=== PATIENT | male | born 1965 | race Caucasian/White ===

== ENCOUNTER 2018-11-11 13:58 | Emergency (ER) | payer OTHER, SELFPAY ==
[2018-11-11 13:59] VITALS: BP 129/88; PULSE 76; RESP 18; TEMP 36.4; O2SAT 93; BMI 24.5
--- NOTE | 2018-11-11 14:09 | RAD_ITS ---
STUDY: X-RAY CHEST REASON FOR EXAM: Male, 53 years old. Shortness of breath. Lightheadedness. TECHNIQUE: Single AP portable view of the chest. COMPARISON: None. FINDINGS: EKG electrodes are seen. Patchy bilateral infiltrates worse in the left lower lobe. There is no demonstrated pleural abnormality. Normal size heart. Normal mediastinum and cristofer. Normal visualized pulmonary arteries. Normal visualized aortic arch and descending thoracic aorta. Normal visualized thoracic spine. Normal visualized ribs, clavicles, and shoulders. There is no demonstrated abnormality of the visualized soft tissue structures of the upper abdomen. RAD/Chest 1 View (Portable) IMPRESSION: Patchy bilateral pulmonary infiltrates worse in the left lower lobe. Follow-up is recommended. Electronically Signed: Kal Irene, at 14:37 EDT , Service support ,
--- NOTE | 2018-11-11 14:09 | EKG12_ITS ---
Test Reason : Blood Pressure : / mmHG Vent. Rate : 064 BPM Atrial Rate : 064 BPM P-R Int : 176 ms QRS Dur : 088 ms QT Int : 398 ms P-R-T Axes : 026 -17 003 degrees QTc Int : 410 ms Normal sinus rhythm Inferior infarct , age undetermined Poor R- wave Progression Abnormal ECG Confirmed by OBEY LIRA, YUSUF ([id number]), editorial assistant SHAZIA HANKINS ([id number]) on 11/16/2018 2:19:51 PM Referred By: RADHA Confirmed By:YUSUF BARNHART MD
--- NOTE | 2018-11-11 14:15 | ED.VIS.GEN ---
History of Present Illness Chief Complaint: Shortness of Breath Informant: Patient Current Severity: Moderate Maximum Severity: Moderate Narrative: Patient presents with some shortness of breath and feeling lightheaded at work. He was diagnosed 5 days ago with pneumonia and placed on doxycycline. He denies any current fevers. He feels much improved since being in the emergency department. He has a cough which is worse in the morning and it is productive. He has some shortness of breath that has improved. He has no nausea or vomiting or abdominal pain. He has normal stools. Past Medical History - Allergies and Home Meds Allergies/Adverse Reactions: Allergies No Known Allergies Allergy (Verified 11/11/18 13:59) Primary Care Physician: Blu Petit MD [Primary Care Provider] - Past Medical History: - - Reviewed in [employer], hypertension Surgical History: no surgical history Lives: Spouse/ Significant Other Review of Systems All systems negative except as indicated General: Reports: - - Lightheaded. Denies: Fever Cardiovascular: Denies: Chest pain Respiratory: Reports: Dyspnea, Cough Gastrointestinal: Denies: Abdominal pain, Nausea Musculoskeletal: Reports: Myalgias Neurological: Reports: Headache, Weakness Hematologic: Reports: Easy bruising Allergy: Reports: Uticaria, Swelling of the mouth Physical Exam Vital Signs/Narrative: Vital Signs Temp Pulse Resp BP Pulse Ox 11/11/18 13:59 97.5 F L 76 18 129/88 H 93 General: Well developed Head: Normocephalic ENT: Dry mucous membranes Cardiovascular: Regular rate, Regular rhythm Respiratory: No distress, - - Coarse bilateral breath sounds Abdomen: Soft Back: Nontender, Normal Inspection Extremities: Nontender Skin: Normal color Neurological: Alert Diagnostic/Tx/Re-eval Chest X-Ray - ED: 1 View, Read by ED Physician, - - Bilateral pneumonia seen by me - Medical Decision Making Patient appears well, x-ray is significant for pneumonia. He is on doxycycline. I believe this is adequate his breathing has improved over the past 5 days is complaint today is lightheaded, he is likely dehydrated since he significantly improved after IV fluids. Otherwise he has a normal work-up including white count. I will discharge him, I will also refer him to pulmonology. ED Disposition - Plan for ED Patient: Disposition: Home or Assisted Living Diagnosis: Pneumonia Instructions: PNEUMONIA (Adult) Referrals: Blu Petit MD [Primary Care Provider] - 3-5 Days
[2018-11-11] MEDS: 0.9% Normal Saline 1,000 ML 1000 ML IV (14:25)
[2018-11-11 14:40] LABS: Absolute Lymphocyte Count 3.51 X10^3/uL (0.83-4.51); Absolute Neutrophil Count 5.6 X10^3/uL (2.0-7.7); Basophil# 0.04 X10^3/uL; Basophil% 0.4 % (0-1); Eosinophils% 2.9 % (0-5); Hematocrit 41.9 % (40-54); Hemoglobin 14.3 g/dL (13.0-16.5); Lymphocyte # 3.51 X10^3/ul (4.0); Lymphocyte % 34.5 % (19-41); Mean Corp Hgb Conc 34.1 g/dL (32-36); Mean Corpuscular Hgb 30.4 pg (27.0-32.0); Monocyte# 0.62 X10^3/uL; Monocyte% 6.1 % (0-10); NRBC Flagged by Analyzer 0 % (0-5); Neutrophil # 5.62 X10^3/uL (2.7-7.7); Neutrophil % 55.3 % (47-70); Platelet Count 420 K/mm3 (150-450); RBC Distribution Width CV 11.8 % (11.6-14.6); RBC Distribution Width SD 38.1 fl (35.1-43.9); Red Blood Count 4.71 M/mm3 (4.6-6.2); White Blood Count 10.2 K/mm3 (4.4-11.0)
[2018-11-11 14:49] LABS: ALB/GLOB Ratio 0.9 RATIO (0.9-2.4); AST(SGOT) 25 U/L (15-37); Alanine Aminotransfer ALT/SGPT 20 U/L (16-61); Albumin, Serum 3.6 g/dL (3.2-5.0); Alkaline Phosphatase 72 U/L (45-117); Anion Gap 4 (5-15); BUN 13 mg/dL (7-18); Calcium,Total 8.9 mg/dL (8.5-10.1); Chloride 106 mmol/L (98-107); EST Glomerular Filtration Rate 83 mL/min (>60); Est Glom Filt Rate - Afr Amer 101 mL/min (>60); Globulin 3.9 g/dL (2.2-4.2); Glucose 94 mg/dL (74-106); Lipase 94 U/L (73-393); Potassium 3.8 mmol/L (3.5-5.1); Protein, Total 7.5 g/dL (6.4-8.2); Sodium Level 136 mmol/L (136-145)
[2018-11-11 15:19] VITALS: BP 122/85; PULSE 76; RESP 20; TEMP 36.6; O2SAT 98
[2018-11-11 15:47] VITALS: BP 125/71; PULSE 81; RESP 20; O2SAT 98
--- NOTE | 2018-11-11 16:23 | ED.RN ---
INHALER TEACHING BY RT.
== END 2018-11-11 16:23 | disposition home or self-care (01) ==
PROVIDERS: Emergency Provider Emergency Medicine; Family Provider Family Medicine; PCP Family Medicine
DX: J18.9 Pneumonia, unspecified organism (principal); I10 Essential (primary) hypertension; Z79.899 Other long term (current) drug therapy
CPT/HCPCS: 71045; 80053; 83690; 84484; 85025; 93005; 94640; 96360; 99284; J7030

== ENCOUNTER → 2018-12-12 07:39 | Outpatient (CLI) | payer OTHER, SELFPAY ==
[2018-11-22 10:53] VITALS: BMI 24.9
--- NOTE | 2018-12-12 07:42 | CT_ITS ---
STUDY: CT CHEST WITHOUT CONTRAST REASON FOR EXAM: Male, 53 years old. Follow-up pneumonia. RADIATION DOSAGE (If Supplied By Facility): CTDIvol = ( 12.96 ) mGy, DLP = ( 449.99 ) mGycm TECHNIQUE: Transaxial imaging was performed without the administration of intravenous contrast material. Individualized dose optimization techniques were used for this CT. COMPARISON: None. FINDINGS: There are bilateral peripherally located groundglass opacities throughout the mid and lower lungs. There is scattered honeycombing. There is no focal consolidation visualized. Normal heart and pericardium. Normal mediastinum. Normal hilar regions. Normal unenhanced pulmonary arteries. Normal aorta arch and descending thoracic aorta. Normal osseous structures. There is no demonstrated abnormality of the visualized upper abdomen. CT/Chest without Contrast IMPRESSION: Findings suggestive of cryptogenic organizing pneumonia or possible eosinophilic pneumonia. Electronically Signed: Brinda Andino MD at 21:08 EDT Tel , Service support ,
--- NOTE | 2018-12-12 08:29 | ECHOD_ITS ---
Reason For Study: ZACK, LINDSAY Procedure This was a 2D Doppler, Color Flow transthoracic echocardiogram. The exam was of adequate technical quality. Exam performed in department. Left Ventricle Normal LV size. Left ventricular systolic function is normal. The estimated ejection fraction is 55 %. No evidence for diastolic dysfunction. No regional wall motion abnormalities noted. Right Ventricle Normal RV size. Normal systolic function. Atria Normal left atrium. Normal right atrium. No doppler evidence for ASD. Mitral Valve There is no mitral annular calcification. Equivocal mitral valve prolapse. Trivial mitral valve insufficiency. Tricuspid Valve Normal tricuspid valve. Trivial tricuspid valve insufficiency. Right ventricular systolic pressure estimated to be 24 mmHg. Aortic Valve Trisinus/trileaflet aortic valve. Mild focal aortic valve thickening. Pulmonic Valve The pulmonic valve is not well visualized. Mild (1+) pulmonic valve insufficiency. Great Vessels Normal sized aortic root. Pericardium/Pleural No pericardial effusion. MMode/2D Measurements & Calculations LVIDd: 3.9 cm IVSd: 1.1 cm Ao root diam: 3.1 cm LVIDs: 2.5 cm LVPWd: 1.0 cm RVDd: 3.2 cm FS: 35.1 % LAV(MOD-bp): 18.4 ml EDV(MOD-sp4): 69.5 ml EDV(MOD-sp2): 61.3 ml LAV(MOD-bp) Indexed: 9.8 ml/m2 ESV(MOD-sp4): 37.5 ml EF(MOD-sp2): 52.9 % LAV(MOD-sp2): 23.0 ml EF(MOD-sp4): 46.0 % LAV(MOD-sp4): 13.9 ml SV(MOD-sp4): 32.0 ml SV(MOD-sp2): 32.5 ml LA A4 area: 8.7 cm2 LA dimension(2D): 3.1 cm RA A4 area: 8.4 cm2 Doppler Measurements & Calculations MV E max niall: 52.5 cm/sec Lat Peak E' Niall: 9.6 cm/sec Med Peak E' Niall: 5.8 cm/sec MV A max niall: 58.2 cm/sec E/E' lat: 5.5 E/E' med: 9.0 MV E/A: 0.90 Ao V2 max: 116.4 cm/sec LV V1 max: 82.6 cm/sec PA V2 max: 82.7 cm/sec Ao max P.4 mmHg LV V1 max P.7 mmHg TR max niall: 231.2 cm/sec TR max P.4 mmHg Interpretation Summary Left ventricular systolic function is normal. The estimated ejection fraction is 55 %. Equivocal mitral valve prolapse. Trivial mitral valve insufficiency. Trivial tricuspid valve insufficiency. Mild focal aortic valve thickening. Mild (1+) pulmonic valve insufficiency. Right ventricular systolic pressure estimated to be 24 mmHg. No evidence for diastolic dysfunction. Ordering Physician: Omar Granado Referring Physician: Blu Petit Performed By: Elena Cedeño RDCS
[2018-12-12 08:33] VITALS: PULSE 100; PULSE 81; PULSE 82; PULSE 92; PULSE 97; O2SAT 90; O2SAT 91; O2SAT 92; O2SAT 93; O2SAT 94
--- NOTE | 2018-12-12 14:46 | PCM.PSN.6M ---
PSN 6 Minute Walk Test - 6 Minute Walk Test 6 Minute Walk Test: 6 Minute Walk Test PSN:6-Minute Walk Test Start: 12/12/18 08:32 Freq: Status: Active Protocol: RESP.6MINW Document 12/12/18 08:33 FR (Rec: 12/12/18 08:39 FR [id number]) 6 Minute Walk Test Date Performed 12/12/18 Time Performed 08:15 Height 5 ft 8 in Weight: 73.482 kg Weight in Pounds 162.[address]: Omar Granado Assistive device used: None Pre-test Oxygen Delivery Method Room Air Pulse Ox (%) 94 Pulse Rate (60-100 beats/min) 82 Dyspnea Monika Scale (0-10) 0 Exertion Monika Scale (6-20) 7 1st minute Oxygen Delivery Method Room Air Pulse Ox (%) 92 Pulse Rate (60-100 beats/min) 92 2nd minute Oxygen Delivery Method Room Air Pulse Ox (%) 90 Pulse Rate (60-100 beats/min) 100 3rd minute Oxygen Delivery Method Room Air Pulse Ox (%) 91 Pulse Rate (60-100 beats/min) 100 4th minute Oxygen Delivery Method Room Air Pulse Ox (%) 92 Pulse Rate (60-100 beats/min) 92 5th minute Oxygen Delivery Method Room Air Pulse Ox (%) 92 Pulse Rate (60-100 beats/min) 97 6th minute Oxygen Delivery Method Room Air Pulse Ox (%) 90 Pulse Rate (60-100 beats/min) 92 Dyspnea Monika Scale (0-10) 2 Exertion Monika Scale (6-20) 8 Reported Symptoms Increased Work of Breathing Post-test Oxygen Delivery Method Room Air Pulse Ox (%) 93 Pulse Rate (60-100 beats/min) 81 Full Laps Walked 18 Partial Lap, Number of Tiles Walked 12 Total Distance Walked (ft) 1074 - Interpretation Interpretation: The patient was able to ambulate 1074 feet over the course of 6 minutes on room air with no assistive devices or breaks. The patient did have significant desaturation from a baseline of 94% to as low as 90%. Patient did not have any significant tachycardia. These findings are consistent with a respiratory limitation exercise tolerance. - Recommendations Recommendations: No supplemental oxygen is indicated at this time, but patient will need to be followed closely given level of desaturation.
== END ==
PROVIDERS: Family Provider Family Medicine; PCP Family Medicine; Referring Provider Internal Medicine Critical Care Medicine; Visit Provider Internal Medicine Critical Care Medicine
DX: R06.02 Shortness of breath (principal)
CPT/HCPCS: 71250; 93306; 94618

== ENCOUNTER → 2018-12-19 07:52 | Outpatient (CLI) | payer OTHER, SELFPAY ==
[2018-11-22 10:53] VITALS: BMI 24.9
--- NOTE | 2018-12-19 13:32 | PFT ---
INTRODUCTION: The patient is a 53-year-old male that presents for pulmonary function studies secondary to a diagnosis of shortness of breath. Respiratory therapy reports good patient effort. Bronchodilators were used during testing. INTERPRETATION: Forced expiration spirometry demonstrates no evidence of a large airways obstructive ventilatory defect. There was a significant response to aerosolized bronchodilators, based upon change noted in FEV1. Spirograms are of good quality and plateau normally. Body plethysmography was performed and reveals a decrease TLC to 4.99 L, 79% of predicted, indicative of a mild restrictive ventilatory impairment. The remainder of the lung volumes are symmetrically reduced. Diffusing capacity by single breath CO is reduced at 45% of predicted. IMPRESSION: Mild restrictive ventilatory impairment with disproportionate reduction in diffusing capacity. Of note, the patient did have a significant bronchodilator response.
== END ==
PROVIDERS: Family Provider Family Medicine; PCP Family Medicine; Referring Provider Internal Medicine Critical Care Medicine; Visit Provider Internal Medicine Critical Care Medicine
DX: R06.02 Shortness of breath (principal)
CPT/HCPCS: 94060; 94726; 94729

== ENCOUNTER → 2019-01-19 09:35 | Outpatient (CLI) | payer OTHER, SELFPAY ==
[2019-01-19 06:08] VITALS: BMI 25.0
[2019-01-19 10:06] LABS: Absolute Lymphocyte Count 3.61 X10^3/uL (0.83-4.51); Absolute Neutrophil Count 5.9 X10^3/uL (2.0-7.7); Basophil# 0.04 X10^3/uL; Basophil% 0.4 % (0-1); Eosinophil# 0.39 X10^3/uL; Eosinophils% 3.7 % (0-5); Hematocrit 44.1 % (40-54); Lymphocyte # 3.61 X10^3/ul (4.0); Lymphocyte % 34.1 % (19-41); Mean Corpuscular Hgb 29.9 pg (27.0-32.0); Mean Platelet Vol. 9.2 fl (6.2-12.0); Monocyte# 0.55 X10^3/uL; Monocyte% 5.2 % (0-10); NRBC Flagged by Analyzer 0 % (0-5); Neutrophil # 5.92 X10^3/uL (2.7-7.7); Neutrophil % 55.9 % (47-70); Platelet Count 381 K/mm3 (150-450); RBC Distribution Width CV 12.6 % (11.6-14.6); RBC Distribution Width SD 40.6 fl (35.1-43.9); Red Blood Count 5.01 M/mm3 (4.6-6.2); White Blood Count 10.6 K/mm3 (4.4-11.0)
[2019-01-19 10:17] LABS: Erythrocyte Sedimentation Rate 28 mm/hr (0-20)
[2019-01-19 12:16] LABS: CRP, High Sensitivity Cardiac 7.37 mg/L
[2019-01-20 16:22] LABS: ANTINUCLEAR ANTIBODIES DIRECT Negative (Negative)
== END ==
PROVIDERS: Family Provider Family Medicine; PCP Family Medicine; Referring Provider Internal Medicine Critical Care Medicine; Visit Provider Internal Medicine Critical Care Medicine
DX: R06.02 Shortness of breath (principal)
CPT/HCPCS: 36415; 85025; 85652; 86038; 86141; 86225; 86235; 86256

== ENCOUNTER → 2019-02-10 07:49 | Outpatient (CLI) | payer OTHER, SELFPAY ==
[2019-01-19 06:08] VITALS: BMI 25.0
--- NOTE | 2019-02-10 07:50 | CT_ITS ---
STUDY: CT CHEST WITHOUT CONTRAST REASON FOR EXAM: Male, 53 years old. History of pneumonia. Follow-up examination. RADIATION DOSAGE (If Supplied By Facility): CTDIvol = ( 12.21 ) mGy, DLP = ( 367.15 ) mGycm TECHNIQUE: Transaxial imaging was performed without the administration of intravenous contrast material. Multiplanar coronal and sagittal images were reformatted. Individualized dose optimization techniques were used for this CT. COMPARISON: Comparison is made with prior study dated December 12, 2018. FINDINGS: Stable scarring at the lung apices. Since prior study, there has been mild degree of improvement in the periphery located airspace disease with the multiple cystic changes suggestive of bronchiectasis. This is more prominent in the lower lobes as compared to the upper lobes. There is no demonstrated pleural abnormality. Normal heart and pericardium. There are multiple small lymph nodes within the mediastinum, which are normal in size and morphology most compatible with reactive lymph hyperplasia. Normal hilar regions. Normal unenhanced pulmonary arteries. Normal aorta arch and descending thoracic aorta. Normal osseous structures. There is no demonstrated abnormality of the visualized upper abdomen. CT/Chest without Contrast IMPRESSION: Mild degree of improved aeration. Persistent peripheral based areas of groundglass appearance with multiple cystic changes in the honeycombing/bronchiectasis. Electronically Signed: Kal Irene, at 14:03 EST , Service support ,
== END ==
PROVIDERS: Family Provider Family Medicine; PCP Family Medicine; Referring Provider Internal Medicine Critical Care Medicine; Visit Provider Internal Medicine Critical Care Medicine
DX: R06.02 Shortness of breath (principal)
CPT/HCPCS: 71250

== ENCOUNTER → 2019-03-13 10:16 | Outpatient (CLI) | payer OTHER, SELFPAY ==
[2019-02-15 09:48] VITALS: BMI 25.0
[2019-03-13 13:09] LABS: Erythrocyte Sedimentation Rate 5 mm/hr (0-20)
[2019-03-13 13:13] LABS: Absolute Lymphocyte Count 3.14 X10^3/uL (0.83-4.51); Absolute Neutrophil Count 8.3 X10^3/uL (2.0-7.7); Basophil# 0.04 X10^3/uL; Basophil% 0.3 % (0-1); Eosinophil# 0.12 X10^3/uL; Hematocrit 46.7 % (40-54); Lymphocyte # 3.14 X10^3/ul (4.0); Lymphocyte % 25.1 % (19-41); Mean Corp Hgb Conc 34.3 g/dL (32-36); Mean Corpuscular Hgb 30.9 pg (27.0-32.0); Mean Corpuscular Volume 90.2 fL (80-94); Mean Platelet Vol. 9.7 fl (6.2-12.0); Monocyte# 0.75 X10^3/uL; NRBC Flagged by Analyzer 0 % (0-5); Neutrophil # 8.32 X10^3/uL (2.7-7.7); Neutrophil % 66.6 % (47-70); Platelet Count 388 K/mm3 (150-450); RBC Distribution Width CV 12.3 % (11.6-14.6); RBC Distribution Width SD 40.3 fl (35.1-43.9); Red Blood Count 5.18 M/mm3 (4.6-6.2); White Blood Count 12.5 K/mm3 (4.4-11.0)
[2019-03-13 13:39] LABS: Color, Urine Yellow (Yellow); Glucose, Dipstick Normal (Normal); Ketone-Dipstick Negative (Negative); Leukocyte Esterase-Dipstick Negative /ul (Negative); Nitrite-Dipstick Negative (Negative); Occult Blood-Urine Negative /ul (Negative); Protein-Dipstick Negative (Negative); Urine Bilirubin Dipstick Negative (Negative); Urine Clarity Clear (Clear); Urine Urobilinogen Normal (Normal)
[2019-03-13 14:03] LABS: ALB/GLOB Ratio 1.1 RATIO (0.9-2.4); AST(SGOT) 21 U/L (15-37); Alanine Aminotransfer ALT/SGPT 30 U/L (16-61); Albumin, Serum 4.1 g/dL (3.2-5.0); Alkaline Phosphatase 68 U/L (45-117); Anion Gap 3 (5-15); BUN 12 mg/dL (7-18); BUN/Creat Ratio 10.2 RATIO (10-20); CRP < 2.90 mg/L (0.0-3.0); Calcium,Total 9.3 mg/dL (8.5-10.1); Chloride 107 mmol/L (98-107); Creatinine, Serum 1.18 mg/dL (0.70-1.30); EST Glomerular Filtration Rate 69 mL/min (>60); Est Glom Filt Rate - Afr Amer 83 mL/min (>60); Globulin 3.9 g/dL (2.2-4.2); Glucose 98 mg/dL (74-106); Potassium 4.1 mmol/L (3.5-5.1); Rheumatoid Factor < 10.0 IU/mL (<15); Sodium Level 139 mmol/L (136-145)
[2019-03-13 14:04] LABS: Hepatitis B Surface Antibody Non-Reactive; Hepatitis B Surface Antigen Non-Reactive (Nonreactive); Hepatitis C Antibody Non-Reactive (Nonreactive)
[2019-03-13 14:37] LABS: Protein, Urine (Random) 8.4 mg/dL (<11.9); Protein:Creat Ratio 162 mg/g CRE (0-200)
[2019-03-15 12:51] LABS: CCP IgG Antibodies 8 units (0-19); Hepatitis B Core AB IgM Negative (Negative)
== END ==
PROVIDERS: Family Provider Family Medicine; PCP Family Medicine; Referring Provider Internal Medicine Rheumatology; Visit Provider Internal Medicine Rheumatology
DX: M06.4 Inflammatory polyarthropathy (principal); J84.10 Pulmonary fibrosis, unspecified; K21.9 Gastro-esophageal reflux disease without esophagitis; I10 Essential (primary) hypertension
CPT/HCPCS: 36415; 80053; 81002; 82570; 84156; 85025; 85652; 86140; 86200; 86431; 86705; 86706; 86803; 87340

== ENCOUNTER → 2019-06-05 07:41 | Outpatient (CLI) | payer OTHER, SELFPAY ==
[2019-04-11 05:56] VITALS: BMI 25.8
[2019-06-05 09:20] LABS: Absolute Lymphocyte Count 4.37 X10^3/uL (0.83-4.51); Absolute Neutrophil Count 5.6 X10^3/uL (2.0-7.7); Basophil# 0.06 X10^3/uL; Basophil% 0.5 % (0-1); Eosinophils% 1.8 % (0-5); Hemoglobin 15.7 g/dL (13.0-16.5); Lymphocyte # 4.37 X10^3/ul (4.0); Lymphocyte % 38.9 % (19-41); Mean Corp Hgb Conc 33.4 g/dL (32-36); Mean Corpuscular Hgb 29.8 pg (27.0-32.0); Mean Corpuscular Volume 89.2 fL (80-94); Mean Platelet Vol. 9.4 fl (6.2-12.0); Monocyte# 0.95 X10^3/uL; Monocyte% 8.5 % (0-10); NRBC Flagged by Analyzer 0 % (0-5); Neutrophil # 5.56 X10^3/uL (2.7-7.7); Neutrophil % 49.4 % (47-70); Platelet Count 370 K/mm3 (150-450); RBC Distribution Width CV 12.1 % (11.6-14.6); RBC Distribution Width SD 39.3 fl (35.1-43.9); Red Blood Count 5.27 M/mm3 (4.6-6.2); White Blood Count 11.2 K/mm3 (4.4-11.0)
[2019-06-05 09:42] LABS: ALB/GLOB Ratio 0.9 RATIO (0.9-2.4); AST(SGOT) 20 U/L (15-37); Alanine Aminotransfer ALT/SGPT 22 U/L (16-61); Albumin, Serum 3.8 g/dL (3.2-5.0); Alkaline Phosphatase 83 U/L (45-117); Anion Gap 4 (5-15); BUN 15 mg/dL (7-18); BUN/Creat Ratio 13.3 RATIO (10-20); Calcium,Total 9.7 mg/dL (8.5-10.1); Chloride 109 mmol/L (98-107); Creatinine, Serum 1.13 mg/dL (0.70-1.30); EST Glomerular Filtration Rate 72 mL/min (>60); Est Glom Filt Rate - Afr Amer 87 mL/min (>60); Globulin 4.1 g/dL (2.2-4.2); Glucose 119 mg/dL (74-106); Potassium 4.3 mmol/L (3.5-5.1); Protein, Total 7.9 g/dL (6.4-8.2); Sodium Level 138 mmol/L (136-145)
--- NOTE | 2019-06-06 13:43 | PFT ---
INTRODUCTION: The patient is a 54-year-old male that presents for pulmonary function studies secondary to a diagnosis of fibrosis. Respiratory therapy reports good patient effort. Bronchodilators were used during testing. INTERPRETATION: Forced expiration spirometry demonstrates no evidence of a large airways obstructive ventilatory defect. There was no significant response to aerosolized bronchodilators. Spirograms are of good quality and plateau normally. Body plethysmography was performed and reveals lung volumes to be within normal limits. Diffusing capacity by single breath CO is reduced at 46% of predicted. IMPRESSION: Isolated reduction in diffusing capacity, which could be related to an underlying pulmonary vascular disorder such as pulmonary hypertension.
== END ==
PROVIDERS: Internal Medicine Rheumatology; PCP Family Medicine; Referring Provider Internal Medicine Critical Care Medicine; Visit Provider Internal Medicine Critical Care Medicine
DX: J84.10 Pulmonary fibrosis, unspecified (principal); I10 Essential (primary) hypertension; M06.4 Inflammatory polyarthropathy; K21.9 Gastro-esophageal reflux disease without esophagitis; M35.9 Systemic involvement of connective tissue, unspecified
CPT/HCPCS: 36415; 80053; 85025; 94060; 94726; 94729

== ENCOUNTER → 2019-07-28 06:58 | Outpatient (CLI) | payer OTHER, SELFPAY ==
[2019-04-11 05:56] VITALS: BMI 25.8
[2019-07-28 07:52] VITALS: PULSE 76; PULSE 81; PULSE 83; PULSE 86; PULSE 90; PULSE 91; PULSE 94; O2SAT 93; O2SAT 94; O2SAT 95; O2SAT 96; O2SAT 97
--- NOTE | 2019-07-28 10:35 | WT_ITS ---
PSN 6 Minute Walk Test - 6 Minute Walk Test 6 Minute Walk Test: 6 Minute Walk Test PSN:6-Minute Walk Test Start: 07/28/19 07:52 Freq: Status: Active Protocol: RESP.6MINW Document 07/28/19 07:52 [facility] (Rec: 07/28/19 07:57 [facility] [id number]) 6 Minute Walk Test Date Performed 07/28/19 Time Performed 07:15 Height 5 ft 8 in Weight: 74.389 kg Weight in Pounds 164.[address]: Nadeen Phillips Assistive device used: None Pre-test Oxygen Delivery Method Room Air Pulse Ox (%) 95 Pulse Rate (60-100 beats/min) 83 Dyspnea Monika Scale (0-10) 2 1st minute Oxygen Delivery Method Room Air Pulse Ox (%) 96 Pulse Rate (60-100 beats/min) 81 Dyspnea Monika Scale (0-10) 2 Number of Rests Taken 0 2nd minute Oxygen Delivery Method Room Air Pulse Ox (%) 94 Pulse Rate (60-100 beats/min) 86 Dyspnea Monika Scale (0-10) 2 Number of Rests Taken 0 3rd minute Oxygen Delivery Method Room Air Pulse Ox (%) 94 Pulse Rate (60-100 beats/min) 90 Dyspnea Monika Scale (0-10) 2 Number of Rests Taken 0 4th minute Oxygen Delivery Method Room Air Pulse Ox (%) 95 Pulse Rate (60-100 beats/min) 94 Dyspnea Monika Scale (0-10) 2 Number of Rests Taken 0 5th minute Oxygen Delivery Method Room Air Pulse Ox (%) 95 Pulse Rate (60-100 beats/min) 90 Dyspnea Monika Scale (0-10) 2 Number of Rests Taken 0 6th minute Oxygen Delivery Method Room Air Pulse Ox (%) 93 Pulse Rate (60-100 beats/min) 91 Dyspnea Monika Scale (0-10) 2 Number of Rests Taken 0 Post-test Oxygen Delivery Method Room Air Pulse Ox (%) 97 Pulse Rate (60-100 beats/min) 76 Dyspnea Monika Scale (0-10) 2 Full Laps Walked 18 Partial Lap, Number of Tiles Walked 40 Total Distance Walked (ft) 1102 - Interpretation Interpretation: The patient was able to ambulate 1102 feet over the course of 6 minutes on room air with no assistive devices or breaks. The patient experienced no significant desaturation or tachycardia during testing. These findings are consistent with a normal walking oximetry. - Recommendations Recommendations: No supplemental oxygen is indicated at this time.
== END ==
PROVIDERS: PCP Family Medicine; Referring Provider Nurse Practitioner Acute Care; Visit Provider Nurse Practitioner Acute Care
DX: J84.10 Pulmonary fibrosis, unspecified (principal)
CPT/HCPCS: 94618

== ENCOUNTER → 2020-12-19 08:00 | Outpatient (CLI) | payer OTHER, SELFPAY ==
[2020-09-24 07:50] VITALS: BMI 24.7
--- NOTE | 2020-12-20 07:49 | PFT ---
INTRODUCTION: The patient is a 55-year-old male that presents for pulmonary function studies secondary to a diagnosis of shortness of breath. Respiratory therapy reported good patient effort. Bronchodilators were used during testing. INTERPRETATION: Forced expiration spirometry demonstrates no evidence of a large airways obstructive ventilatory defect. There was no significant response to aerosolized bronchodilators. Spirograms are of good quality and plateau normally. Body plethysmography was performed and reveals lung volumes to be within normal limits. Diffusing capacity by single breath CO is reduced to 53% of predicted. IMPRESSION: Moderate reduction in diffusing capacity, which appears somewhat improved from PFTs last completed in May 2019.
== END ==
PROVIDERS: PCP Family Medicine; Referring Provider Internal Medicine Critical Care Medicine; Visit Provider Internal Medicine Critical Care Medicine
DX: J84.89 Other specified interstitial pulmonary diseases (principal)
CPT/HCPCS: 94060; 94726; 94729

== ENCOUNTER → 2021-10-13 | Outpatient (CLI) | payer OTHER, SELFPAY ==
--- NOTE | 2021-10-13 15:13 | PFTCOMP ---
COMPLETE PULMONARY FUNCTION TEST INTERPRETATION Brief HPI: Patient is a 56-year-old male, currently under the care of myself, who presents to [facility] for complete pulmonary function tests secondary to diagnosis of NSIP. Respiratory therapist reports good effort and reproducible results. Interpretation: Forced expiration spirometry shows no large airways obstructive ventilatory defect with an FEV1 of 65% predicted. There is no significant bronchodilator response by strict ATS criteria. Spirograms are of good quality and plateau normally. The respiratory flow volume loop shows a normal pattern. Lung volumes by body plethysmography show a mildly decreased total lung capacity at 4.42 L, 71% predicted. All other lung volumes are reduced symmetrically. Diffusion capacity by carbon monoxide is decreased at 54% predicted. The airway resistance is normal. Compared to previous pulmonary function tests from 12/19/2020, there is been a significant reduction in total lung capacity by 25%. Impression: Mild restrictive ventilatory defect with a disproportionate reduction in diffusion capacity and some worsening compared to previous study.
== END | disposition home or self-care (01) ==
LOC: PSN 07:49
PROVIDERS: PCP Family Medicine; Visit Provider Nurse Practitioner Acute Care
DX: J84.10 Pulmonary fibrosis, unspecified (principal)
CPT/HCPCS: 94060; 94726; 94729

== ENCOUNTER → 2021-12-12 | Outpatient (CLI) | payer OTHER, SELFPAY | END | disposition home or self-care (01) | LOC: SL 12:05 | PROVIDERS: PCP Family Medicine; Referring Provider Internal Medicine Critical Care Medicine; Visit Provider Internal Medicine Critical Care Medicine | DX: J84.89 Other specified interstitial pulmonary diseases (principal) | CPT/HCPCS: 94762 ==

== ENCOUNTER 2022-02-04 07:45 | Outpatient (CLI) | payer OTHER, SELFPAY ==
--- NOTE | 2022-02-04 07:47 | CT_ITS ---
STUDY: CT CHEST WITHOUT CONTRAST REASON FOR EXAM: Male, 56 years old. Worsening PFT. History of interstitial pulmonary fibrosis. RADIATION DOSAGE (If Supplied By Facility): CTDIvol = ( 9.36 ) mGy, DLP = ( 318.25 ) mGycm TECHNIQUE: Transaxial imaging was performed without the administration of intravenous contrast material. Multiplanar coronal and sagittal images were reformatted. Individualized dose optimization techniques were used for this CT. COMPARISON: Comparison is made with prior examination dated 02/10/2019. FINDINGS: CHEST Stable small benign-appearing bilateral axillary lymph nodes. Emphysematous changes. Since prior study, there has been a progression of the bilateral patchy areas of groundglass appearance with that of bronchiectasis and scarring with subpleural blebs. This is worse in the lower lobes. There is no demonstrated pleural abnormality. Normal heart and pericardium. No coronary artery calcification is seen. There are multiple small lymph nodes within the mediastinum, which are normal in size and morphology most compatible with reactive lymph hyperplasia. Normal hilar regions. Normal unenhanced pulmonary arteries. Normal aorta arch and descending thoracic aorta. Normal osseous structures. There is no demonstrated abnormality of the visualized upper abdomen. CT/Chest without Contrast IMPRESSION: Diffuse emphysematous changes with progression of the diffuse bilateral pulmonary fibrosis with bronchiectasis and honeycombing. Electronically Signed: Kal Irene MD at 13:58 EST ,
== END 2022-02-04 23:59 | disposition home or self-care (01) ==
PROVIDERS: PCP Family Medicine; Referring Provider Internal Medicine Critical Care Medicine; Visit Provider Internal Medicine Critical Care Medicine
DX: J84.89 Other specified interstitial pulmonary diseases (principal); J47.9 Bronchiectasis, uncomplicated; J98.4 Other disorders of lung; R91.8 Other nonspecific abnormal finding of lung field
CPT/HCPCS: 71250; 94060; 94726; 94729

== ENCOUNTER 2022-06-06 08:04 | Emergency (ER) | payer OTHER, SELFPAY ==
[2022-06-06 08:04] VITALS: BP 144/91; PULSE 73; RESP 16; TEMP 36.4; O2SAT 99; BMI 24.5
--- NOTE | 2022-06-06 08:20 | ED.VIS.CHEST ---
HPI History of Present Illness Chief Complaint: Chest Pain Informant: patient and spouse/S.O. Narrative Narrative: Patient presents by private vehicle evaluation left-sided chest pain intermittent over the past 2 days. States intermittent sharp sensations. Chronic cough due to history of pulmonary fibrosis diagnosed 2018. Remote tobacco stopped in 2016. History of hyper tension and hyperlipidemia. Stress test years ago. No history of heart caths. 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 No recent leg swelling or cramping. No history of PE or DVT. Took naproxen last night with improvement of symptoms. States had nontraumatic lower back pain starting Wednesday which has resolved. No abdominal pain. Prior Similar Symptoms: No CVD Risk Factors: Positive for Hypertension and Hypercholesterolemia; Negative for Diabetes or Smoking PE Risk Factors: Positive for Recent Travel/Surgery; Negative for Recent Immobilization or Prior DVT or PE [facility] Medical History (Updated 06/06/22 @ 11:[address] Dakota Bolton, DO) Acid reflux Herpes simplex History of bronchitis HTN (hypertension) Hyperlipidemia Inguinal hernia Pulmonary fibrosis Home Medications lisinopril 10 mg tablet 10 mg PO DAILY 11/11/18 [History Last Taken Unknown] hydroxychloroquine 200 mg tablet (Plaquenil) 200 mg PO BID 12/15/19 [History Last Taken Unknown] ascorbic acid (vitamin C) 500 mg capsule 1,000 mg PO 05/20/20 [History Last Taken Unknown] cholecalciferol (vitamin D3) 50 mcg (2,000 unit) capsule 50 mcg PO DAILY 05/20/20 [History Last Taken Unknown] folic acid 1 mg tablet 1 mg PO DAILY 05/20/20 [History Last Taken Unknown] leucovorin calcium 15 mg tablet 15 mg PO .once a week 05/20/20 [History Last Taken Unknown] loratadine 10 mg tablet (Allergy Relief (loratadine)) 10 mg PO DAILY 05/20/20 [History Last Taken Unknown] zinc 50 mg tablet 50 mg PO DAILY 05/20/20 [History Last Taken Unknown] albuterol sulfate 90 mcg/actuation aerosol inhaler 2 inh inhalation Q6H PRN shortness of breath or wheezing #8.5 grams 07/23/20 [Rx Last Taken Unknown] budesonide 160 mcg-glycopyr 9 mcg-formot 4.8 mcg/actuation HFA inhaler (Breztri Aerosphere) 2 inh inhalation BID #10.7 grams 11/17/21 [Rx Last Taken Unknown] omeprazole 20 mg capsule,delayed release 20 mg PO DAILY #90 caps 11/17/21 [Rx Last Taken Unknown] methotrexate sodium 2.5 mg tablet 17.5 mg PO QWEEK 02/16/22 [History Last Taken Unknown] Allergy/AdvReac Type Severity Reaction Status Date / Time No Known Allergies Allergy Verified 06/06/22 08:06 Family History Grandfather Black lung disease Father Heart disease CVA (cerebral vascular accident) COPD (chronic obstructive pulmonary disease) Mother breathing related issues Other Diabetes Surgical History No history of previous surgery Social History Smoking Status: Former smoker Tobacco: How many years used: 36 how long ago did patient quit smokin, 0.5ppd second hand exposure: Yes ROS ROS ED Constitutional Constitutional ED: Denies chills, fever(s) or sweats Eyes Eyes: Denies change in vision ENT ENT ED: Denies dysphagia or sore throat Cardiovascular Cardiovascular: Reports chest pain; Denies leg edema, palpitations or racing heartbeat Respiratory/Chest Respiratory/Chest: Reports cough, dyspnea and dyspnea on exertion Gastrointestinal Gastrointestinal: Denies abdominal pain, diarrhea, nausea or vomiting Genitourinary Genitourinary ED: Denies dysuria, hematuria or urinary frequency Musculoskeletal Musculoskeletal: Denies back pain, extremity pain or neck pain Integumentary Denies rash or wounds Neurologic Neurologic: Denies headache(s), paresthesias or weakness EXAM Physical Exam Const Vital Signs: 06/06/22 08:04 06/06/22 08:18 06/06/22 08:37 Temperature 97.6 F L Temperature Source Temporal Pulse Rate 73 Respiratory Rate 16 Respiratory Effort Normal Non-Labored Respiratory Pattern Normal Blood Pressure 144/91 H Blood Pressure Mean 108 Pulse Ox 99 97 Oxygen Delivery Method Room Air Room Air 06/06/22 10:12 Temperature Temperature Source Pulse Rate 62 Respiratory Rate 20 H Respiratory Effort Respiratory Pattern Blood Pressure 117/88 H Blood Pressure Mean 97 Pulse Ox 100 Oxygen Delivery Method Room Air Positive well nourished and well developed General Appearance ED: well developed and NAD HEENT Reports moist mucous membranes normocephalic and atraumatic Eyes PERRL, EOMs intact bilaterally and conjunctivae normal General Eye ED: Yes normal appearance of both eyes Neck no lymphadenopathy and supple General: Negative for tenderness Chest Wall inspection of chest normal and palpation of chest normal Chest Narrative: No rash Chest: Negative for tenderness Resp normal respiratory effort and normal air movement Effort and Inspection: symmetric chest movement; Negative for respiratory distress Cardio regular rate, regular rhythm and no murmurs Peripheral Pulses: pulses 2+ throughout GI normal to inspection, nondistended, normoactive bowel sounds and non-tender Palpation: Negative for guarding or rebound tenderness present Back/Spine no CVA tenderness and no thoracic nor lumbar tenderness Back/Spine Narrative: No ecchymosis, no rashes, nontender lumbar spine region. Extremity normal to inspection General Extremety ED: Negative for edema or tenderness General Extremity: Negative for edema Neuro oriented x3 and no sensory deficits noted Sensorium / Orientation: awake and alert Skin no rashes or lesions noted and no wounds Heart Score History: Slightly/Non-Suspicious ECG: Nonspecific Repolarization Age: >45 - <65 years Risk Factors: 1 or 2 Risk Factors Troponin: </= Normal Limit Score: 3 MDM MDM MDM Narrative Medical decision making narrative: Interventions / MDM: Differential diagnosis: ACS, pulmonary embolism, atypical chest pain Diagnosis considered but do not suspect: N/A My EKG interpretation: Sinus rate of 80, no ST changes, T wave inversions in leads III flattening in aVF. Similar findings from October 2020. Imaging independently reviewed and interpreted by myself: CT angiogram chest: Interpreted by radiology shows no acute process. External documents reviewed: N/A Test considered but not ordered:N/A ED course: Patient intermittent chest pains left side for the past 2 days. None currently. EKG chronic changes work-up negative troponin x2 low risk Wells criteria for PE, D-dimer obtained elevated subsequent CT of the chest negative. Symptom-free on reevaluation. Patient symptoms improved with NSAIDs discussed continue this as needed. He will follow-up with PCP for further testing as an outpatient. Return precautions. All questions were answered. Re-evaluation: stable Disposition discussed with patient/family/significant other: Patient and significant other Case discussed with consulting clinician: N/A Lab Data Labs: Laboratory Results - last 24 hr 06/06/22 06/06/22 06/06/22 08:29 08:29 08:29 WBC 11.0 RBC 4.75 Hgb 14.3 Hct 43.7 MCV 92.0 MCH 30.1 MCHC 32.7 RDW Std Deviation 42.3 RDW Coeff of Claudette 12.7 Plt Count 414 MPV 9.0 Immature Gran % (Auto) 0.900 Neut % (Auto) 60.9 Lymph % (Auto) 24.0 [place] % (Auto) 9.4 Eos % (Auto) 4.5 Baso % (Auto) 0.3 Absolute Neuts (auto) 6.7 Absolute Lymphs (auto) 2.63 Nucleated RBC % 0 PT 13.1 INR 1.0 APTT 30.5 D-Dimer Quant (PE/DVT) 1.34 H* Sodium 136 Potassium 4.3 Chloride 108 H Carbon Dioxide 27.0 Anion Gap 1 L BUN 14 Creatinine 0.91 Estim Creat Clear Calc 87.69 Est GFR (MDRD) Af Amer 111 Est GFR (MDRD) Non-Af 91 BUN/Creatinine Ratio 15.4 Glucose 104 Calcium 9.4 Troponin I High Sens 4 06/06/22 10:50 WBC RBC Hgb Hct MCV MCH MCHC RDW Std Deviation RDW Coeff of Claudette Plt Count MPV Immature Gran % (Auto) Neut % (Auto) Lymph % (Auto) King[place] % (Auto) Eos % (Auto) Baso % (Auto) Absolute Neuts (auto) Absolute Lymphs (auto) Nucleated RBC % PT INR APTT D-Dimer Quant (PE/DVT) Sodium Potassium Chloride Carbon Dioxide Anion Gap BUN Creatinine Estim Creat Clear Calc Est GFR (MDRD) Af Amer Est GFR (MDRD) Non-Af BUN/Creatinine Ratio Glucose Calcium Troponin I High Sens < 3 L Radiography Diagnostic Testing: Clinical Impression(s) from Imaging Studies Chest CTA 06/06/22 09:04 IMPRESSION: No demonstrated pulmonary embolism or arterial dissection. COPD and pulmonary fibrosis as well as bronchiectasis detailed above. Mediastinal adenopathy and hilar adenopathy is again noted. This could be reactive. Lymphoma or metastatic disease cannot be excluded. Electronically Signed: Neymar Barclay MD, ADAM at 9:32 EDT , Discharge Plan Triage Chief Complaint: Chest Pain ED Provider: Dakota Bolton Dx/Rx/DC Orders Clinical Impression: Chest pain, Pulmonary fibrosis Instructions: ED Chest Pain, Uncertain Cause Prescriptions: No Action folic acid 1 mg tablet 1 mg PO DAILY ascorbic acid (vitamin C) 500 mg capsule 1,000 mg PO zinc 50 mg tablet 50 mg PO DAILY cholecalciferol (vitamin D3) 50 mcg (2,000 unit) capsule 50 mcg PO DAILY leucovorin calcium 15 mg tablet 15 mg PO .once a week loratadine [Allergy Relief (loratadine)] 10 mg tablet 10 mg PO DAILY methotrexate sodium 2.5 mg tablet 17.5 mg PO QWEEK hydroxychloroquine [Plaquenil] 200 mg tablet 200 mg PO BID Breztri Aerosphere 160-9-4.8 mcg/actuation HFA aerosol inhaler 2 inh inhalation BID Qty: 10.7 6RF omeprazole 20 mg capsule,delayed release(DR/EC) 20 mg PO DAILY Qty: 90 3RF lisinopril 10 MG tablet 10 mg PO DAILY Label Comments: TAKE 1 TABLET BY MOUTH ONCE DAILY albuterol sulfate 90 mcg/actuation HFA aerosol inhaler 2 inh INHALATION Q6H PRN (Reason: shortness of breath or wheezing) Qty: 8.5 6RF Primary Care Provider: Moshe Vincent Referrals: Moshe Vincent MD [Primary Care Provider] - 3-5 Days Activity Restrictions/Additional Instructions: Cardiac work-up negative, CT chest negative for PE. Stable nodules noted in the scan. Follow-up with your doctor for stress test as an outpatient. Return if worsening symptoms. Disposition Disposition: Home, Self Care Discharge Date/Time: 06/06/22 12:02
[2022-06-06 08:37] VITALS: O2SAT 97
[2022-06-06 08:37] LABS: Absolute Lymphocyte Count 2.63 X10^3/uL (0.83-4.51); Absolute Neutrophil Count 6.7 X10^3/uL (2.0-7.7); Basophil# 0.03 X10^3/uL; Basophil% 0.3 % (0-1); Eosinophil# 0.49 X10^3/uL; Eosinophils% 4.5 % (0-5); Hematocrit 43.7 % (40-54); Hemoglobin 14.3 g/dL (13.0-16.5); Lymphocyte # 2.63 X10^3/ul (0.83-4.51); Mean Corp Hgb Conc 32.7 g/dL (32-36); Mean Corpuscular Hgb 30.1 pg (27.0-32.0); Monocyte# 1.03 X10^3/uL; Monocyte% 9.4 % (0-10); NRBC Flagged by Analyzer 0 % (0-5); Neutrophil # 6.68 X10^3/uL (2.7-7.7); Neutrophil % 60.9 % (47-70); Platelet Count 414 K/mm3 (150-450); RBC Distribution Width CV 12.7 % (11.6-14.6); RBC Distribution Width SD 42.3 fl (35.1-43.9); Red Blood Count 4.75 M/mm3 (4.6-6.2)
[2022-06-06 08:55] LABS: Anion Gap 1 (5-15); BUN 14 mg/dL (7-18); BUN/Creat Ratio 15.4 RATIO (10-20); Calcium,Total 9.4 mg/dL (8.5-10.1); Chloride 108 mmol/L (98-107); Creatinine, Serum 0.91 mg/dL (0.70-1.30); EST Glomerular Filtration Rate 91 mL/min (>60); Est Glom Filt Rate - Afr Amer 111 mL/min (>60); Estimated Creatinine Clearance 87.69 ml/min; Glucose 104 mg/dL (74-106); Potassium 4.3 mmol/L (3.5-5.1); Sodium Level 136 mmol/L (136-145); Troponin-I HS (w/2H Reflex) 4 pg/mL (3.0-78.0)
[2022-06-06 08:57] LABS: Prothrombin Time (Protime)PT. 13.1 SECONDS (11.7-14.9)
[2022-06-06 08:58] LABS: Partial Thromboplast Time 30.5 Seconds (24.1-36.2)
[2022-06-06 09:01] LABS: D-Dimer Quantitative (DVT/PE) 1.34 FEU/ug/m (0.27-0.49)
--- NOTE | 2022-06-06 09:04 | CT_ITS ---
STUDY: CTA CHEST REASON FOR EXAM: Male, 57 years old. chest pain RADIATION DOSAGE (If Supplied By Facility): CTDIvol = ( 11.92 ) mGy, DLP = ( 349.96 ) mGycm TECHNIQUE: The examination was performed with the intravenous administration of IV 100mL Isovue-370. Post-processing of the angiographic images was performed, with multiplanar reformation and 3D reconstruction. Individualized dose optimization techniques were used for this CT. COMPARISON: 02/04/2022. FINDINGS: Normal enhancement of the main pulmonary artery and right and left pulmonary arteries. Normal enhancement of the bilateral peripheral pulmonary arteries. There is no demonstrated pulmonary embolism. Normal thoracic aorta and visualized great vessels. There is no demonstrated aortic dissection. Normal heart and pericardium. Normal AP window lymph node 1.7 x 1.83 cm. The prevascular lymph node 0.5 x 1.0 cm. 2 subcarinal lymph nodes 1.0 x 1.3 cm and 0.8 x 0.9 cm. Left hilar lymph nodes measure 1.0 x 1.2 cm and 0.8 x 0.9 cm. Right hilar lymph node 1.0 x 0.8 cm. Right lower hilar lymph node 1.5 x 1.3 cm. Normal visualized trachea. There is diffuse COPD. Moderate fibrosis seen peripherally in the upper lobes. There is moderate bronchiectasis within the lingula. There is moderate fibrosis peripherally in the right middle lobe and lingula. There is severe fibrosis within both lower lobes with honeycombing, bronchiectasis and emphysematous disease. Normal pulmonary parenchyma. Normal pleura. Normal chest wall structures. Normal osseous structures. Normal visualized upper abdomen. CT/CTA Chest W/WO Contrast IMPRESSION: No demonstrated pulmonary embolism or arterial dissection. COPD and pulmonary fibrosis as well as bronchiectasis detailed above. Mediastinal adenopathy and hilar adenopathy is again noted. This could be reactive. Lymphoma or metastatic disease cannot be excluded. Electronically Signed: Neymar Barclay MD, ADAM at 9:32 EDT ,
[2022-06-06 10:12] VITALS: BP 117/88; PULSE 62; RESP 20; O2SAT 100
[2022-06-06 10:33] LABS: Reflex Troponin-HS? (from REC) Y
[2022-06-06 11:12] LABS: Troponin-I HS < 3 pg/mL (3.0-78.0)
== END 2022-06-06 12:02 | disposition home or self-care (01) ==
PROVIDERS: Emergency Provider Emergency Medicine; PCP Family Medicine; Visit Provider Emergency Medicine
DX: R07.9 Chest pain, unspecified (principal); J84.10 Pulmonary fibrosis, unspecified; E78.00 Pure hypercholesterolemia, unspecified; Z87.891 Personal history of nicotine dependence; E78.5 Hyperlipidemia, unspecified; I10 Essential (primary) hypertension
CPT/HCPCS: 71275; 80048; 84484; 85025; 85379; 85610; 85730; 93005; 99284; Q9967; A4216

== ENCOUNTER → 2022-09-14 | Outpatient (CLI) | payer OTHER, SELFPAY ==
--- NOTE | 2022-09-15 05:35 | PFTCOMP_ITS ---
COMPLETE PULMONARY FUNCTION TEST INTERPRETATION Brief HPI: Patient is a 57-year-old male, currently under the care of myself, who presents to [facility] for complete pulmonary function tests secondary to diagnosis of ILD. Respiratory therapist reports good effort and reproducible results. Interpretation: Forced expiration spirometry shows no large airways obstructive ventilatory defect with an FEV1 of 68% predicted. There is no significant bronchodilator response by strict ATS criteria. Spirograms are of good quality and plateau slowly, indicating slowly emptying areas of the lungs. The respiratory flow volume loop shows a normal pattern. Lung volumes by body plethysmography show a decreased total lung capacity at 4.41 L, 71% predicted. All other lung volumes are reduced symmetrically. Diffusion capacity by carbon monoxide is decreased at 63% predicted. The airway resistance is normal. Compared to previous pulmonary function tests from 02/04/2022, there is been a significant improvement in DLCO by 17%. Impression: Mild restrictive ventilatory defect with a symmetric reduction diffusion capacity, but some improvement compared to previous testing.
== END | disposition home or self-care (01) ==
PROVIDERS: PCP Family Medicine; Referring Provider Internal Medicine Critical Care Medicine; Visit Provider Internal Medicine Critical Care Medicine
DX: J84.89 Other specified interstitial pulmonary diseases (principal)
CPT/HCPCS: 94060; 94726; 94729

== ENCOUNTER → 2022-10-01 | Outpatient (CLI) | payer OTHER, SELFPAY ==
[2022-10-01 08:17] VITALS: PULSE 70; PULSE 80; PULSE 86; PULSE 88; PULSE 89; PULSE 91; PULSE 96; O2SAT 93; O2SAT 94; O2SAT 95; O2SAT 97
--- NOTE | 2022-10-02 05:42 | PCM.PSN.6M ---
PSN 6 Minute Walk Test 6 Minute Walk Test 6 Minute Walk Test: 6 Minute Walk Test PSN:6-Minute Walk Test Start: 10/01/22 08:17 Freq: Status: Active Protocol: RESP.6MINW Document 10/01/22 08:17 (Rec: 10/01/22 08:22 JR [id number]) 6 Minute Walk Test Date Performed 10/01/22 Time Performed 08:15 Height 5 ft 8 in Weight: 73.482 kg Weight in Pounds 162.[address]: Omar Granado Assistive device used: None Pre-test Oxygen Delivery Method Room Air Pulse Ox 94 Pulse Rate (60-100) 70 Dyspnea Monika Scale (0-10) 0 Exertion Monika Scale (6-20) 6 1st minute Oxygen Delivery Method Room Air Pulse Ox 95 Pulse Rate (60-100) 86 2nd minute Oxygen Delivery Method Room Air Pulse Ox 93 Pulse Rate (60-100) 91 3rd minute Oxygen Delivery Method Room Air Pulse Ox 94 Pulse Rate (60-100) 89 4th minute Oxygen Delivery Method Room Air Pulse Ox 95 Pulse Rate (60-100) 80 5th minute Oxygen Delivery Method Room Air Pulse Ox 94 Pulse Rate (60-100) 96 6th minute Oxygen Delivery Method Room Air Pulse Ox 94 Pulse Rate (60-100) 88 Dyspnea Monika Scale (0-10) 3 Exertion Monika Scale (6-20) 11 Post-test Oxygen Delivery Method Room Air Pulse Ox 97 Pulse Rate (60-100) 80 Full Laps Walked 16 Partial Lap, Number of Tiles Walked 0 Total Distance Walked (ft) 944 Interpretation Interpretation: Patient was able to ambulate 944 feet over the course of 6 minutes on room air with no assistive devices or breaks. The patient experienced no significant desaturation or tachycardia during testing. These findings are consistent with a musculoskeletal limitation exercise tolerance. Recommendations Recommendations: No supplemental oxygen is indicated at this time.
== END | disposition home or self-care (01) ==
LOC: PSN 07:57
PROVIDERS: PCP Family Medicine; Referring Provider Internal Medicine Critical Care Medicine; Visit Provider Internal Medicine Critical Care Medicine
DX: J84.89 Other specified interstitial pulmonary diseases (principal)
CPT/HCPCS: 94618

== ENCOUNTER → 2023-10-19 | Outpatient (CLI) | payer OTHER, SELFPAY | END | disposition home or self-care (01) | PROVIDERS: PCP Family Medicine; Referring Provider Internal Medicine Critical Care Medicine; Visit Provider Internal Medicine Critical Care Medicine | DX: J84.89 Other specified interstitial pulmonary diseases (principal) | CPT/HCPCS: 94060; 94726; 94729 ==

== ENCOUNTER → 2024-08-14 | Outpatient (CLI) | payer OTHER, SELFPAY ==
[2024-08-14 10:33] LABS: Absolute Lymphocyte Count 4.16 X10^3/uL (0.83-4.51); Absolute Neutrophil Count 7.3 X10^3/uL (2.0-7.7); Basophil% 0.4 % (0-1); Eosinophil# 0.32 X10^3/uL; Eosinophils% 2.5 % (0-5); Hematocrit 46.5 % (40-54); Hemoglobin 15.7 g/dL (13.0-16.5); Lymphocyte # 4.16 X10^3/ul (0.83-4.51); Lymphocyte % 31.9 % (19-41); Mean Corp Hgb Conc 33.8 g/dL (32-36); Mean Corpuscular Hgb 29.9 pg (27.0-32.0); Mean Corpuscular Volume 88.6 fL (80-94); Mean Platelet Vol. 9.6 fl (6.2-12.0); Monocyte# 1.12 X10^3/uL; Monocyte% 8.6 % (0-10); Neutrophil % 55.8 % (47-70); Platelet Count 390 K/mm3 (150-450); RBC Distribution Width CV 14.2 % (11.6-14.6); RBC Distribution Width SD 45.4 fl (35.1-43.9); Red Blood Count 5.25 M/mm3 (4.6-6.2); White Blood Count 13.1 K/mm3 (4.4-11.0)
[2024-08-14 10:34] LABS: Basophil# 0.05 X10^3/uL; NRBC Flagged by Analyzer 0 % (0-5)
[2024-08-14 12:02] LABS: ALB/GLOB Ratio 1.4 RATIO (0.9-2.4); AST(SGOT) 25 U/L (<=37); Alanine Aminotransfer ALT/SGPT 25 U/L (<=46); Albumin, Serum 4.3 g/dL (3.5-5.0); Alkaline Phosphatase 94 U/L (40-129); Anion Gap 12 (5-15); BUN 14 mg/dL (4-19); BUN/Creat Ratio 14.9 RATIO (10-20); Calcium,Total 9.6 mg/dL (7.6-11.0); Carbon Dioxide 23.1 mmol/L (21.0-32.0); Chloride 102 mmol/L (98-108); Creatinine, Serum 0.95 mg/dL (0.70-1.20); EST Glomerular Filtration Rate 93 (>60); Glucose 96 mg/dL (70-99); Potassium 4.1 mmol/L (3.3-5.1); Protein, Total 7.3 g/dL (5.9-8.4); Sodium Level 137 mmol/L (133-145); Total Bilirubin 0.23 mg/dL (0.00-1.30)
== END | disposition home or self-care (01) ==
PROVIDERS: Internal Medicine Medical Oncology; PCP Family Medicine; Referring Provider Nurse Practitioner Acute Care; Visit Provider Nurse Practitioner Acute Care
DX: J84.10 Pulmonary fibrosis, unspecified (principal); M06.4 Inflammatory polyarthropathy; Z79.899 Other long term (current) drug therapy; M18.0 Bilateral primary osteoarthritis of first carpometacarpal joints
CPT/HCPCS: 36415; 80053; 85025; 94060; 94726; 94729

== ENCOUNTER → 2024-08-15 | Outpatient (CLI) | payer OTHER, SELFPAY ==
[2024-08-15 08:08] VITALS: PULSE 82; PULSE 92; PULSE 93; PULSE 95; PULSE 97; PULSE 99; O2SAT 89; O2SAT 90; O2SAT 92; O2SAT 93; O2SAT 94; O2SAT 95
--- NOTE | 2024-08-18 10:47 | PCM.PSN.6M ---
PSN 6 Minute Walk Test 6 Minute Walk Test 6 Minute Walk Test: 6 Minute Walk Test PSN:6-Minute Walk Test Start: 08/15/24 08:25 Freq: Status: Active Protocol: RESP.6MINW Document 08/15/24 08:08 [facility] (Rec: 08/15/24 08:36 [facility] [id number]) 6 Minute Walk Test Date Performed 08/15/24 Time Performed 08:00 Height 26.77 in Weight: 157 lb Weight in Pounds 157.[address]: Nadeen Phillips TELEVISION ANCHOR FIO2 (% Oxygen) 21 Assistive device None used: Pre-test Oxygen Delivery Room Air Method Pulse Ox (%) 95 Pulse Rate (60-100 82 beats/min) Dyspnea Monika Scale ( 2 0-10) Exertion Monika Scale 7 (6-20) 1st minute Oxygen Delivery Room Air Method Pulse Ox (%) 93 Pulse Rate (60-100 93 beats/min) 2nd minute Oxygen Delivery Room Air Method Pulse Ox (%) 92 Pulse Rate (60-100 99 beats/min) 3rd minute Oxygen Delivery Room Air Method Pulse Ox (%) 90 Pulse Rate (60-100 93 beats/min) 4th minute Oxygen Delivery Room Air Method Pulse Ox (%) 92 Pulse Rate (60-100 95 beats/min) 5th minute Oxygen Delivery Room Air Method Pulse Ox (%) 90 Pulse Rate (60-100 97 beats/min) Reported Symptoms Increased Work of Breathing 6th minute Oxygen Delivery Room Air Method Pulse Ox (%) 89 Pulse Rate (60-100 92 beats/min) Dyspnea Monika Scale ( 4 0-10) Exertion Monika Scale 10 (6-20) Reported Symptoms Increased Work of Breathing Post-test Oxygen Delivery Room Air Method Pulse Ox (%) 94 Pulse Rate (60-100 95 beats/min) Full Laps Walked 19 Partial Lap, Number 0 of Tiles Walked Total Distance 1121 Walked (ft) Interpretation Interpretation: The patient ambulated 1121 feet over the course of 6 minutes beginning on room air without assistive devices. Pretesting oxygen saturation was noted to be 95% on room air. With ambulation, the jean paul oxygen saturation was 89%. This represents a significant exertional oxygen desaturation, consistent with a pulmonary limitation to exercise tolerance. Recommendations Recommendations: There is no indication for the use of supplemental oxygen at this time. However, close interval follow-up was recommended, given the degree of oxygen desaturation noted during this study.
== END | disposition home or self-care (01) ==
LOC: PSN 08:01
PROVIDERS: PCP Family Medicine; Referring Provider Nurse Practitioner Acute Care; Visit Provider Nurse Practitioner Acute Care
DX: J84.10 Pulmonary fibrosis, unspecified (principal)
CPT/HCPCS: 94618